=== PATIENT | female | born 1940 | race Hispanic/Latino ===

== ENCOUNTER → 2018-09-04 | Day surgery (SDC) | payer MEDICARE ==
[2018-09-01 16:43] LABS: BASOPHILS # (AUTO) 0.1 (0.0-0.1); BASOPHILS % 0.5 % (0.0-1.0); EOSINOPHILS # (AUTO) 0.1 (0.0-0.4); EOSINOPHILS % 1.2 % (0.0-6.0); HEMATOCRIT 37.5 % (34.2-44.1); HEMOGLOBIN 12.2 g/dL (12.0-16.0); LYMPHOCYTES # (AUTO) 3.1 (1.0-3.2); LYMPHOCYTES % 31.4 % (18.0-39.1); MEAN CORPUSCULAR HEMOGLOBIN 31.3 pg (28-32); MEAN CORPUSCULAR HGB CONC 32.5 g/dL (31-35); MEAN CORPUSCULAR VOLUME 96.2 fL (81-99); MONOCYTES # (AUTO) 0.8 (0.2-0.8); MONOCYTES % 7.7 % (4.4-11.3); NEUTROPHILS # (AUTO) 5.8 (2.1-6.9); NEUTROPHILS % 58.8 % (38.7-80.0); PLATELET COUNT 181 x10e3/uL (140-360); RED CELL DISTRIBUTION WIDTH 13.5 % (11.7-14.4)
[2018-09-01 17:05] LABS: ALBUMIN 3.5 g/dL (3.5-5.0); ALBUMIN/GLOBULIN RATIO 1.2 (0.8-2.0); ANION GAP 14.6 mmol/L (8-16); CALCIUM 8.8 mg/dL (8.4-10.2); CHOL/HDL RATIO 4.3 (3.0-3.6); CREATININE, SERUM 1.09 mg/dL (0.57-1.11); POTASSIUM 4.6 mmol/L (3.5-5.1)
[~2018-09-04] VITALS: Ht 152.4 cm; Wt 49.0 kg
[2018-09-04] VITALS (7 sets, daily range): BP systolic 155–179; BP diastolic 67–87
[~2018-09-04] MED LIST: ALPRAZOLAM 0.5 MG TAB ONE; ASPIRIN81 MG; ATORVASTATIN CA20 MG PO; CIPRO500 MG PO; DIPHENHYDRAMINE HCL 25 MG CAP ONE; FENTANYL CITRATE/PF 100MCG/2 ML INJ ONE; GLIPIZIDE-METF1 EAC1; HEPARIN SOD/SOD CHLORIDE 2,000 ML ONE; HYDROCHLOROTHIA25 MG; IOPAMIDOL 300MG/ML 100 ML INFUS..BTL IV ONE; IOPAMIDOL 370 MG/ML 200 ML INFUS..BTL INJ ONE; ISOSORBIDE MONO30 MG PO; LIDOCAINE HCL 2% LOCAL 20 ML VIAL ONE; LOSARTAN POTAS100 MG PO; METOPROLOL SUCC25 MG PO; MIDAZOLAM HCL 2 MG/2 ML VIAL ONE; MIRTAZAPINE15 MG PO; POTASSIUM CHLO10 ME1 PO; SODIUM CHLORIDE 0.9% 1000ML 1,000 ML ONE
--- NOTE | 2018-09-05 09:04 | Operative Report ---
DATE OF PROCEDURE: September 04, 2018 CARDIAC DOCUMENT REVIEW ATTORNEY PROCEDURE NOTE INDICATIONS: Peripheral arterial disease, coronary artery disease. PROCEDURES PERFORMED: 1. Left heart catheterization, selective coronary angiography. 2. Abdominal aortogram with bilateral lower extremity runoff. 3. Bilateral extracranial carotid angiograms. COMPLICATIONS: None. BLOOD LOSS: 5 mL. RECOMMENDATIONS: Medical therapy versus right fem-pop bypass. DESCRIPTION OF PROCEDURE: Access obtained in the right femoral artery. A 6-[place] sheath was placed. Coronary angiography demonstrated multiple stents in the proximal, mid as well as distal left anterior descending artery, multiple stents in the circumflex artery. The stents had diffuse 30% to 50% in-stent re-stenosis. Distal circumflex artery was a dominant vessel and is completely occluded at the end of previously placed stents. The distal left posterior descending artery fills via collaterals from the left coronary system. Right coronary artery was codominant, 2-mm vessel with 70% mid RCA stenosis. No intervention was deemed necessary. Bilateral extracranial carotid angiograms demonstrated 50% bilateral internal carotid artery stenosis, medical therapy recommended. Abdominal aortogram demonstrated heavily calcified abdominal aorta and iliacs and femoral arteries. Renal arteries were patent. 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 Left femoral artery mid 50% stenosis, 2-vessel runoff to both lower extremities. Again, no intervention was deemed necessary. Right groin repaired using Perclose. Patient was discharged home same day. Job#: [id number]
== END | disposition home or self-care (01) ==
LOC: CATH LAB 09-02 07:15
PROVIDERS: ATTEND Internal Medicine Interventional Cardiology
DX: I25.118 Atherosclerotic heart disease of native coronary artery with other forms of angina pectoris (principal); I70.203 Unspecified atherosclerosis of native arteries of extremities, bilateral legs; I65.23 Occlusion and stenosis of bilateral carotid arteries; I87.2 Venous insufficiency (chronic) (peripheral); I25.2 Old myocardial infarction; I10 Essential (primary) hypertension; E13.8 Other specified diabetes mellitus with unspecified complications; F17.210 Nicotine dependence, cigarettes, uncomplicated; Z01.812 Encounter for preprocedural laboratory examination; Z79.82 Long term (current) use of aspirin; Z79.84 Long term (current) use of oral hypoglycemic drugs; Z95.5 Presence of coronary angioplasty implant and graft
CPT/HCPCS: 36222; 36415; 75630; 80053; 80061; 85025; 93454; J2001; J2250; J7030; Q9967 ×2